=== PATIENT | female | born 1940 | race Caucasian/White ===

== ENCOUNTER 2018-06-23 17:34 | Emergency (ER) | payer MEDICAID, OTHER ==
[~2018-06-23] VITALS: Wt 63.5 kg
[2018-06-23] MEDS ORDERED: LABETALOL HCL 20MG INJ IV ONE (18:00)
[2018-06-23] MEDS ORDERED: INSULIN SQ (18:58)
[2018-06-23] MEDS ORDERED: CHOLESTEROL PO (18:59)
[2018-06-23] MEDS ORDERED: DIABETES PO (18:59)
[2018-06-23] MEDS ORDERED: BLOOD PRESSURE PO (19:01)
--- NOTE | 2018-06-23 19:25 | ERD ---
ER Documentation Chief Complaint Chief Complaint reji, [facility] d/t high blood pressure; feels a little dizzy HPI Patient is a 78-year-old female with hypertension, diabetes, and high cholesterol who presents for high blood pressure. The patient was sent by the clinic. The patient was brought in by ambulance. She has no symptoms. She feels slightly dizzy. She is taking pills for her blood pressure. Upon review of old medical records this is the patient's first visit to the emergency department. She does not remember the name of her primary doctor. ROS All systems reviewed and are negative except as per history of present illness. Medications Home Meds Reported Medications [Blood Pressure] No Conflict Check, PO 06/23/18 [Cholesterol] No Conflict Check, PO DAILY 06/23/18 [Diabetes] No Conflict Check, PO 06/23/18 [Insulin] No Conflict Check, SQ 06/23/18 Allergies Allergies: Coded Allergies: No Known Allergy (Unverified , 06/23/18) PMhx/Soc Hx Cardiac Disorders: Yes (HTN) Hx Alcohol Use: No Hx Substance Use: No Hx Tobacco Use: No Smoking Status: Never smoker FmHx Family History: diabetes Physical Exam Vitals Vital Signs Date Temp Pulse Resp B/P (MAP) Pulse Ox O2 O2 Flow FiO2 Time Delivery Rate 06/23/18 66 16 179/79 100 Room Air 18:40 (112) 06/23/18 73 18 191/62 18:14 (105) 06/23/18 97.8 77 20 224/95 97 17:37 (138) Physical Exam Const: No acute distress Head: Atraumatic Eyes: Normal Conjunctiva ENT: Normal External Ears, Nose and Mouth. Neck: Full range of motion. No meningismus. Resp: Clear to auscultation bilaterally Cardio: Regular rate and rhythm, no murmurs Abd: Soft, non tender, non distended. Normal bowel sounds Skin: No petechiae or rashes Back: No midline or flank tenderness Ext: No cyanosis, or edema Neur: Awake and alert Psych: Normal Mood and Affect Result Diagram: 06/23/18182206/23/181822 Results 24 hrs Laboratory Tests Test 06/23/18 18:23 White Blood Count 6.4 10^3/ul Red Blood Count 3.91 10^6/ul Hemoglobin 12.0 g/dl Hematocrit 36.1 % Mean Corpuscular Volume 92.3 fl Mean Corpuscular Hemoglobin 30.7 pg Mean Corpuscular Hemoglobin Concent 33.2 g/dl Red Cell Distribution Width 13.2 % Platelet Count 221 10^3/UL Mean Platelet Volume 10.7 fl Immature Granulocytes % 0.200 % Neutrophils % 44.7 % Lymphocytes % 43.6 % Monocytes % 8.3 % Eosinophils % 2.7 % Basophils % 0.5 % Nucleated Red Blood Cells % 0.0 /100WBC Immature Granulocytes # 0.010 10^3/ul Neutrophils # 2.9 10^3/ul Lymphocytes # 2.8 10^3/ul Monocytes # 0.5 10^3/ul Eosinophils # 0.2 10^3/ul Basophils # 0.0 10^3/ul Nucleated Red Blood Cells # 0.0 10^3/ul Sodium Level 140 mmol/L Potassium Level 4.3 mmol/L Chloride Level 105 mmol/L Carbon Dioxide Level 28 mmol/L Anion Gap 7 Blood Urea Nitrogen 19 mg/dl Creatinine 0.55 mg/dl Est Glomerular Filtrat Rate mL/min mL/min Glucose Level 156 mg/dl Calcium Level 9.4 mg/dl Troponin I < 0.012 ng/ml Current Medications Medications Dose Sig/Maritza Start Time Status Last (Trade) Ordered Route PRN Stop Time Admin Dose Reason Admin Labetalol 20 mg ONCE ONCE 06/23/18 DC 06/23/18 HCl IV 18:00 06/23/18 18:21 (Labetalol) 18:01 Procedures/MDM EKG read by me: Rate/Rhythm: Regular rate and rhythm at a rate of 73 Intervals: Normal Impression: No evidence of ischemia or arrhythmia Patient is a 78-year-old female presents for high blood pressure. I doubt hypertensive urgency at this time. The patient was given labetalol. Labs and EKG were normal. The patient will be discharged and will need to follow-up with her primary doctor within 1 week. The patient can return for any worsening symptoms. She should discuss further blood pressure medication with her primary doctor. Departure Diagnosis: Primary Impression: Hypertension Hypertension type: essential hypertension Qualified Codes: I10 - Essential (primary) hypertension Condition: Fair Patient Instructions: High Blood Pressure (Hypertension) Referrals: Your doctor Additional Instructions: Llame al doctor fermín talbot (Referral Sources) MIMI y john juanjose GIA PARA DENTRO DE JUANJOSE SEMANA. Dgale a la secretaria que nosotros le instruimos hacer esta gia.Avise o llame si kruse condicin se empeora antes de la gia. FORD ROE MD June 23, 2018 19:25
[2018-06-23 20:35] VITALS: BP 141/82; PULSE 70; RESP 18
== END 2018-06-23 20:36 | disposition home or self-care (01) ==
LOC: E/R 17:34
DX: I10 Essential (primary) hypertension (principal); E11.9 Type 2 diabetes mellitus without complications; Z79.4 Long term (current) use of insulin
CPT/HCPCS: 36415; 80048; 84484; 85025; 93005; 96374; Z7502; Z7610